=== PATIENT | male | born 1980 | race Caucasian/White ===

== ENCOUNTER 2018-05-14 19:34 | Inpatient (IN) ==
--- NOTE | 2018-05-14 19:38 | Emergency Department Note ---
Disposition Clinical Impression: Suicidal ideation, Intoxication Disposition: Still a Patient Condition: Fair Referrals: NONE,PCP [Primary Care Provider] - Forms: ED Satisfaction Letter General Adult HPI - General Stated complaint: 1A Eval Time Seen by Provider: 05/14/18 19:35 - Related Data Home Medications Medication Instructions Recorded Confirmed RX: No Known Home Drugs 02/22/16 05/14/18 Allergies Allergy/AdvReac Type Severity Reaction Status Date / Time Penicillins [PCN] Allergy Hives Verified 06/21/15 16:24 Past Medical History - Past Medical History Medical history: Reports: hepatitis Surgical history: Reports: no surgical history Psychiatric history: Reports: anxiety, depression - Social History Smoking Status: Current every day smoker Smokeless Tobacco Status: No Alcohol use: Reports: heavy Drug use: Reports: marijuana, methamphetamine, IV Drug Use Course Vital Signs Temperature 98.3 F 05/14/18 19:35 Pulse Rate 89 05/14/18 19:35 Respiratory Rate 17 05/14/18 19:35 Blood Pressure 104/61 05/14/18 19:35 O2 Sat by Pulse Oximetry 99 05/14/18 19:35 Temperature 98.3 F 05/14/18 19:35 Pulse Rate 89 05/14/18 19:35 Respiratory Rate 17 05/14/18 19:35 Blood Pressure 104/61 05/14/18 19:35 O2 Sat by Pulse Oximetry 99 05/14/18 19:35 Oxygen Delivery Oxygen Delivery Room Air Attestation Statement - Attestation Attestation: I examined this patient and my medical decision-making was reviewed with the Resident Physician. I agree with the documented findings, disposition and treatment plan as described except to the extent set forth below. [id number]-[id number] time provided Patient arrives as a transfer from [facility] with alleged suicidality. The patient admits to drinking alcohol today. He was pink slipped by the previous facility. The patient is cooperative. I have reviewed the labs drawn at the sending facility. The patient's blood alcohol level is 203 mg/dL. He will require repeat alcohol level in several hours. Care will be endorsed to Dr. Valdez at 23:00 pending repeat EtOH level and planned mental health consultation
--- NOTE | 2018-05-14 19:39 | Emergency Department Note ---
Disposition Clinical Impression: Suicidal ideation, Intoxication Disposition: Still a Patient Condition: Fair Forms: ED Satisfaction Letter Psych HPI - General Chief Complaint: ED Psychiatric Symptoms Stated Complaint: 1A Eval Time Seen by Provider: 05/14/18 19:35 Source: patient, EMS Mode of arrival: EMS Limitations: no limitations Nursing Notes Reviewed: Yes Vital Signs Reviewed: Yes - History of Present Illness HPI Narrative: 38-year-old male history of bipolar and schizophrenia who presents to the ED from outside facility due to suicidal ideation. Patient is evasive with his answers and does not really answer anything straightforward. As per previous documentation the patient was seen for suicidal ideation stating he was going to overdose. He had labs and urinalysis performed there. Grossly unremarkable the exception of alcohol level of 203. The patient was pink slipped there. He presents alert and answering questions appropriately but is evasive. He denies any complaints this time. Denies any auditory or visual hallucinations. He denies any suicidal or homicidal ideation. No other complaints. Alleged intoxication: Yes Associated Psychiatric Symptoms: none Associated symptoms: Reports: denies other symptoms Treatments prior to arrival: none - Related Data Home Medications Medication Instructions Recorded Confirmed No Known Home Drugs 02/22/16 05/14/18 Allergies Allergy/AdvReac Type Severity Reaction Status Date / Time Penicillins [PCN] Allergy Hives Verified 06/21/15 16:24 All systems ED: reviewed and negative except as stated. Cardiovascular: Denies: chest pain Respiratory: Denies: dyspnea Gastrointestinal: Denies: abdominal pain Neurological: Denies: headache Psychiatric: Denies: anxiety, depression, suicidal thoughts, homicidal thoughts, auditory hallucinations, visual hallucinations Past Medical History - Past Medical History Attestation: Yes The following information was validated with the patient. Source: patient, old records reviewed Medical history: Reports: hepatitis Surgical history: Reports: no surgical history Psychiatric history: Reports: anxiety, depression - Social History Smoking Status: Current every day smoker Smokeless Tobacco Status: No Alcohol use: Reports: heavy Drug use: Reports: marijuana, methamphetamine, IV Drug Use Physical Exam - General Limitations: no limitations General appearance: alert, in no apparent distress - Head Head exam: atraumatic, normocephalic, normal inspection - Eye Eye exam: Present: normal appearance - ENT ENT exam: normal exam - Neck Neck exam: Present: normal inspection - Chest Chest inspection: Present: normal inspection, symmetric chest wall rise - Respiratory Respiratory exam: Present: normal lung sounds bilaterally - Cardiovascular Cardiovascular exam: Present: regular rate, normal rhythm, normal heart sounds - Extremities Exam Extremities exam: Present: normal inspection, full ROM - Expanded Upper Extremity Exam Shoulder exam: Present: normal inspection, full ROM Arm exam: Present: normal inspection, full ROM Elbow exam: Present: normal inspection, full ROM Forearm/Wrist exam: Present: normal inspection, full ROM Hand exam: Present: normal inspection, full ROM - Expanded Lower Extremity Exam Hip/Pelvis exam: Present: normal inspection, full ROM Upper leg exam: Present: normal inspection, full ROM Knee exam: Present: normal inspection, full ROM Lower leg exam: Present: normal inspection, full ROM Ankle exam: Present: normal inspection, full ROM Foot/toe exam: Present: normal inspection, full ROM - Psychiatric Psychiatric exam: Present: depressed, flat affect - Expanded Psychiatric Exam Expanded psych exam: Present: refuses to answer - Skin Skin exam: Present: warm, dry Course Course Narrative: Patient seen and examined. Vital signs reviewed. After reviewing the patient's recent presentation there as well as the fact that he is evasive to answer any questions here the patient is pink slipped here, labs reviewed demonstrating an alcohol level of 203 which will need to be repeated around midnight for medical clearance for psychiatric evaluation. Vital Signs Temperature 98.3 F 05/14/18 19:35 Pulse Rate 89 05/14/18 19:35 Respiratory Rate 17 05/14/18 19:35 Blood Pressure 104/61 05/14/18 19:35 O2 Sat by Pulse Oximetry 99 05/14/18 19:35 Temperature 98.3 F 05/14/18 19:35 Pulse Rate 89 05/14/18 19:35 Respiratory Rate 17 05/14/18 19:35 Blood Pressure 104/61 05/14/18 19:35 O2 Sat by Pulse Oximetry 99 05/14/18 19:35 Oxygen Delivery Oxygen Delivery Room Air Psych - MDM Narrative Medical decision making narrative: 38-year-old male presenting for reportedly suicidal ideation. He is currently awaiting recheck of his alcohol level at this time. The patient will be signed out to the hourly shift manager team pending recheck of his blood alcohol level and discussion with psychiatry for evaluation. - Lab Data Lab results reviewed: Yes I reviewed the patient's lab results. Psychiatric Medical Clearance - Medical Clearance Checklist Medical History: No Social History Section defined Current Vitals: Last Vital Signs Temp 98.3 F 05/14/18 19:35 Pulse 89 05/14/18 19:35 Resp 17 05/14/18 19:35 BP 104/61 05/14/18 19:35 Pulse Ox 99 05/14/18 19:35 Statement of Medical Clearance: I have evaluated the patient, reviewed diagnostic information, and certify that the patient's medical condition is sufficiently stable that transfer to the psychiatric unit does not pose a significant risk of deterioration. S.B.A.R. - S.B.A.R. Situation: Demographics, MOA Background: Presenting Complaint, Relevant PMH, Meds, & Allergies Assessment: Course and respsone to treatment, Exam Concerns, Patient/Family Expectation, Pertinant Lab Results, Outstanding Labs (Repeat EtOH at midnight) Recommendation: Barrier(s) to disposition, Recommendation based on pending studies, treatments, or consults S.B.A.R. Report Given to: Dr. Valdez
[2018-05-14] MEDS ORDERED: Ziprasidone injection 20 MG/ML VIAL IM ONE (20:24)
[2018-05-14] MEDS ORDERED: Water for inj. (sterile) 10 ML IV ONE (20:30)
[2018-05-15] MEDS ORDERED: *HR* LORazepam 2 MG/ML VIAL IM PRN (03:01)
[2018-05-15] MEDS ORDERED: MOM Conc 10 ML UD.LIQ PO PRN (03:01)
[2018-05-15] MEDS ORDERED: Mag Hydrox/Al Hydrox/Simeth 30 ML UDC PO PRN (03:01)
[2018-05-15] MEDS ORDERED: Haloperidol Lactate 5 MG/ML VIAL IM PRN (03:01)
[2018-05-15] MEDS ORDERED: *HR* LORazepam 1 MG TABLET PO PRN (03:01)
[2018-05-15] MEDS ORDERED: Ibuprofen 400 MG TABLET PO PRN (03:01)
[2018-05-15] MEDS: hydrOXYzine pamoate 25 MG CAPSULE PO PRN ×2 (03:47→20:47)
[2018-05-15] MEDS: Nicotine 21 MG PATCH.TD24 TD SCH (10:19)
--- NOTE | 2018-05-15 13:26 | Psychiatry History & Physical ---
Date of Encounter: 05/15/18 Time of Encounter: 08:25 History of Present Illness Patient Stated Chief Complaint: "Paranoia" Medicare Admission Attestation: For traditional Medicare patients the provided hospital inpatient services are reasonable and necessary and in the case of services not specified as inpatient-only under 42 CFR 419.22 (n), that they are appropriately provided as inpatient services in accordance 42 CFR 412.3. For Critical Access Hospital the patient may reasonably be expected to be discharged or transferred to a hospital within 96 hours after admission to the Critical Access Hospital. Admitted From: Emergency Dept Plans for Post Hospital Care: Home History of Present Illness: Mr. Metz is a 38 year old male with a past psychiatric history of Methamphetamine Use, Alcohol Use Disorder, depression, and Substance-Induced Psychotic Disorder as well as self-reported Schizophrenia and bipolar disorder who was admitted for paranoia and SI. Reports state that patient's grandson and told police that he was having SI and wanted to overdose on meth. Reports state that he has been sober from meth for 4-8 days. His family reported that he had poor sleep and appetite. He stated in reports that his mind was racing and had paranoia that people "were out to get him," improving when people were present. Patient reports that he has been paranoid 1 month. He explains that he is then "freaked out for days." He does admit that he gets paranoid on methamphetamine. He explains that since he has been off methamphetamine, his mind has been clear but he continues to have the same level of paranoia. He reports that "I am starting to feel normal again." He explains that his family has been "telling me I am crazy." He states that his paranoia consists of thinking that "everybody is out to get me." She denies that he believes people are trying to harm him but reports that people are "playing games with my head." He gives an example of believing that there were 2 vegetable peelers, stating that he could find neither. He believes that people have taken the peelers out of the kitchen. Patient reports that he is also having suicidal ideations. He reports that his "presentencing officer" told him to go to the ED after the patient called stating that he needed "help." He reports past suicidal thoughts but not to this extent. He denies a plan as to how he would harm himself. He reports overdosing once 4-5 years ago with the intent to self-harm but denies other attempts. He reports that he was on 1A for that attempt. He reports protective factors of his grandchildren (nonbiological) who he sees often. He denies access to firearms. He states that his depression today is "a lot better." He reports depression before today for about a month. He states that the first time he was depressed was in 1995. He admits to having depression even with sobriety, stating, "dictation that is when it is the worst." He admits to decreased sleep (getting a couple hours a night), concentration, and energy as well as feelings of hopelessness and worthlessness. He reports that his mind is racing, stating that he is having thoughts about his and kids. He reports that they are negative in nature, stating that he is constantly worried that he will "lose them." He states, "they tell me I am crazy for thinking that." He denies issues with anhedonia, feelings of unwarranted guilt, and appetite. He denies issues with anxiety today. He denies taking psychiatric medications and does not follow up with anyone anymore for psychiatric issues. He denies SI, HI, AH, and VH. He reports a history of AH when sober and intoxicated, reporting hearing "noises outside" like car doors. He reports that this is happening "a lot" recently. He denies excessive amounts of energy with prolonged decrease in sleep characteristic of bipolar disorder. He denies compulsions consistent with obsessive-compulsive disorder. Past Med Surg Social Fam HX - Past Medical History Source: patient Medical history: hepatitis, other (Dormant and inactive tuberculosis) - Past Psychiatric History Psychiatric history: Reports: bipolar, prior suicide attempt (Substance-induced psychotic disorder, methamphetamine use disorder, alcohol use disorder), schizophrenia, previous psychiatric hospitalization, other Past psychiatric history details: First Contact: 1995 for depression Current Providers: None Past Diagnoses: Schizophrenia, Depression Past Hospitalizations: 4 times, all in 1A Suicide History: Reports SI intermittently in life with 1 attempt 4-5 years ago via overdose. He denies a history of self-injurious non-lethal harm Past Medications: Risperidone Quetiapine Trazodone Others he cannot remember Denies that any medications have helped Family psychiatric history: No Family History of Suicide: None - Past Surgical History Surgical History: no surgical history - Social History Smoking Status: Current every day smoker Packs per day: 1ppd Smokeless Tobacco Status: No Alcohol use: occasionally (Reports seldom use currently; states that he used to drink 30 beers a day, stopping this use 1 year ago) Drug use: marijuana (Reports smoking 2 joints a day), methamphetamine (Reports using methamphetamine on a daily basis, reporting sobriety for 8 days), IV Drug Use (Denies a history of IV drug use with this provider by reported it with other staff) Occupational status: disabled Current living situation: With Family Activity Level: Independent ambulation Recent Out of Country Travel Within the Last 8 Weeks: No Additional social history: Born: [place]. Raised: [facility]. Parents were when he was a child, living with his grandmother. Reports having 1 younger sister who he does not peak much with. Reports that his childhood was great. He reports having a lot of friends and did alright in school, getting average grades. Denies a history of sexual, physical, or emotional abuse. He reports living with his ex- and grandkids. He denies feeling safe in his home. He admits to being x 1, x 1, and reports that his ex- and him are friends currently. He reports having 1 son who he does not speak with. He states that his highest level of education is a GED. He denies a history of experience. He reports being in detention x 2 for theft and is recently in trouble for a car maria fernanda with the police. He denies a orlin or druze he identifies with. Medications & Allergies Azelastine 0.1% Nasal [place] [Astelin] 1 spr NS DAILY 05/15/18 [History] Ergocalciferol (VITAMIN D2) [Vitamin D2] 50,000 unit PO QWEEK 05/15/18 [History] Gabapentin 800 mg PO QID 05/15/18 [History] Meloxicam 15 mg PO QDPC 05/15/18 [History] RX: Acamprosate Calcium 666 mg PO TID 05/15/18 [History] RX: Loratadine [Claritin] 10 mg PO DAILY 05/15/18 [History] RX: Trazodone HCl 200 mg PO HS 05/15/18 [History] risperiDONE [Risperidone] 1 mg PO DAILY 05/15/18 [History] Allergy/AdvReac Type Severity Reaction Status Date / Time Penicillins [PCN] Allergy Hives Verified 06/21/15 16:24 Review of Systems Constitutional: Reports: weakness (subjective, generalized). Denies: fever, chills, weight change, night sweats Eyes: Denies: eye pain, eye discharge, vision change Ears, Nose, Throat: Denies: ear pain, throat pain, dental pain, hearing loss, epistaxis, congestion, dysphagia Cardiovascular: Denies: chest pain, palpitations, dyspnea on exertion, orthopnea, edema, syncope Respiratory: Denies: cough, dyspnea, wheezes, hemoptysis, stridor, sputum production Gastrointestinal: Denies: abdominal pain, nausea, vomiting, diarrhea, constipation, hematemisis, melena, hematochezia Genitourinary male: Denies: urgency, dysuria, frequency, hematuria, discharge, testicular pain, genital lesions Musculoskeletal: Denies: back pain, joint swelling, joint pain, myalgia Integumentary: Denies: rash, lesions, pruritus, breast mass, nipple discharge Neurological: Denies: headache, weakness, numbness, memory loss, abnormal gait, vertigo Psychiatric: Reports: depression, abnormal sleep pattern, difficulty concentrating, hopelessness. Denies: anxiety, suicidal ideation, change in appetite, homicidal ideation, auditory hallucinations, visual hallucinations, anhedonia, confusion Endocrine: Denies: fatigue, heat or cold intolerance, polydipsia, polyuria Hematologic/Lymphatic: Denies: easy bleeding, easy bruising, lymphadenopathy Allergic/Immunologic: Denies: urticaria, itchy eyes Exam - HEENT Head exam IM: Present: atraumatic Eye exam IM: Present: EOMI, normal appearance ENT exam IM: Present: normal exam - Neurological Neurological exam: Present: alert - Respiratory Respiratory exam IM: Present: CTAB (Grossly, respirations rhythmic) - GI/Abdominal GI/Abdominal exam IM: Present: no peritoneal signs - Extremities Extremities exam IM: Present: normal inspection - Skin Skin exam IM: Present: dry - Constitutional Vitals: Temp Pulse Resp BP Pulse Ox 97.8 F 87 18 115/78 97 05/15/18 09:22 05/15/18 09:22 05/15/18 09:22 05/15/18 09:22 05/15/18 09:22 General appearance: age & developmentally appropriate, well-groomed, well- nourished, average Additional observations: Covered up in blanket - Musculoskeletal Gait: normal Station: relaxed Strength & Tone: normal for patient - Psychiatric Patient Orientation: Yes Person, Yes Time, Yes Place Level of alertness: Alert, Follows commands Behavior: calm, cooperative Psychomotor activity: Slowed (Mildly) Eye Contact: Minimal Contact (Due to lying in bed) Mood Description: Depressed Patient description of mood: "All right" Affect description: congruent with mood, constricted Speech Volume: Normal Speech pattern: normal rate, normal tone, fluent, spontaneous, appropriate, clear, coherent, limited (Decreased prosody) Language & Vocabulary: consistent with education Thought Process: Logical, Linear, Goal Oriented Thought Content: No Suicidal ideation, No Homicidal ideation, No Overt delusions Perceptual Disturbances: No Reacting to internal stimuli, No Auditory hallucinations, No Visual hallucinations Attention Span Ability: Capable of Focused Attention Memory Description: Grossly Intact Patient Reliability: Reliable Historian Fund of knowledge: Yes abstraction ability, Yes average, Yes aware of current events Intelligence Estimate: Average Judgment: Fair Insight: Partial Results - Drug Levels and Toxicology Drug Levels and Toxicology: Drug Levels and Toxicity 05/14/18 23:58 Ethyl Alcohol 42 H - Labs Labs: Laboratory Last Values Ethyl Alcohol 42 mg/dL (Less than 10) H 05/14/18 23:58 - Impressions None noted this a.m. Assessment and Plan (1) Drug-induced psychotic disorder with delusions Current visit: Yes Status: Acute Plan: Admit inpatient for safety and stabilization, Close observation, Suicide Precautions per unit protocol, Encourage participation in unit milieu, Group Therapy, Monitor sleep, Monitor appetite Additional Plan: -It is unknown if patient true hallucinations worse this is due to substance use. At this time, due to the recent methamphetamine use and subacute status of withdrawal, we will call his current condition substance-induced psychotic disorder. He likely also has a mood component that is not due to substance use, with him stating that he has depression even with sobriety. However, it is unknown if he has a bipolar or a unipolar illness. He reports a history of bipolar disorder has been at this hospital several times without a bipolar diagnosis in the chart. In addition, he denies a history of prolonged excessive energy with decreased sleep that is characteristic of bipolar disorder. As such, we will call this other specified depressive disorder, substance-induced depressive disorder versus major depressive disorder. -Due to increased paranoia, depression, and possible auditory hallucinations, we will start aripiprazole 5 mg by mouth daily at bedtime for mood and psychosis. Risks, benefits, side effects, and alternatives were discussed with the patient -Continue hydroxyzine 25 mg by mouth 3 times a day when necessary for anxiety -Continue trazodone 50 mg by mouth daily at bedtime when necessary for sleep -Continue when necessary medication as needed for agitation and aggression -Encourage group this patient -Patient reports stable housing -Will work to refer patient for psychiatric and counseling services, which he agrees with -Anticipated discharge once more psychiatrically stable Risks, benefits, side effects, alternatives discussed w/pt: Yes Patient agreeable to treatment: Yes Plans for Post Hospital Care: Home Estimated Length of Stay (Days): 3 (2) Other specified depressive episodes Current visit: Yes Status: Acute Plan: Admit inpatient for safety and stabilization, Close observation, Suicide Precautions per unit protocol, Encourage participation in unit milieu, Group Therapy, Monitor sleep, Monitor appetite Risks, benefits, side effects, alt ernatives discussed w/pt: Yes Patient agreeable to treatment: Yes Plans for Post Hospital Care: Home Estimated Length of Stay (Days): 3 - Attending Attestation I examined this patient and my medical decision-making was reviewed with the Resident Physician. I agree with the documented findings, disposition and treatment plan as described except to the extent set forth below.
[2018-05-15] MEDS: traZODone 50 MG TABLET PO PRN (20:47)
[2018-05-15] MEDS: ARIPiprazole 5 MG TABLET PO SCH (20:48)
--- NOTE | 2018-05-16 09:14 | Psychiatry Progress Note ---
Date of Encounter: 05/16/18 Time of Encounter: 09:12 Subjective Interval history: She reports she is tolerating medications well. He said that his mood is good. He had some paranoia yesterday but has not been expressing tingling at this morning. He denies suicidal thoughts ideations or plans. He is future oriented. Review of Systems Psychiatric: Reports: depression. Denies: anxiety, suicidal ideation, change in appetite, homicidal ideation, auditory hallucinations, visual hallucinations, anhedonia, confusion Results - Vital Signs Vital Signs: Temp Pulse Resp BP Pulse Ox 98.4 F 76 18 109/77 97 05/16/18 09:00 05/16/18 09:00 05/16/18 09:00 05/16/18 09:00 05/16/18 09:00 Assessment and Plan (1) Drug-induced psychotic disorder with delusions Current visit: Yes Status: Acute Plan: Continue hospitalization, Close observation, Suicide Precautions per unit protocol, Encourage participation in unit milieu, Group Therapy, Monitor sleep, Monitor appetite Additional Plan: Continue current medication, therapist working on discharge planning, encourage group attendance. No signs of withdrawal. We will discontinue every 4 hours vitals. Risks, benefits, side effects, alternatives discussed w/pt: Yes Patient agreeable to treatment: Yes (2) Other specified depressive episodes Current visit: Yes Status: Acute Risks, benefits, side effects, alternatives discussed w/pt: Yes Patient agreeable to treatment: Yes Consult Discharge Plan - Plan Referrals: NONE,PCP [Primary Care Provider] - Psychiatry Exam - Constitutional Vitals: Temp Pulse Resp BP Pulse Ox 98.4 F 76 18 109/77 97 05/16/18 09:00 05/16/18 09:00 05/16/18 09:00 05/16/18 09:00 05/16/18 09:00 General appearance: age & developmentally appropriate, well-groomed, well- nourished - Musculoskeletal Gait: normal Station: relaxed Strength & Tone: normal for patient - Psychiatric Patient Orientation: Yes Person, Yes Time, Yes Place Level of alertness: Alert Behavior: calm, cooperative Psychomotor activity: Normal Eye Contact: Maintains Eye Contact Mood Description: Euthymic/stable Patient description of mood: "better" Affect description: congruent with mood, full range Speech Volume: Normal Speech pattern: normal rate, normal rhythm, normal tone, fluent, spontaneous Language & Vocabulary: consistent with education Thought Process: Linear, Goal Oriented Thought Content: No Suicidal ideation, No Homicidal ideation, No Overt delusions Perceptual Disturbances: No Auditory hallucinations, No Visual hallucinations Attention Span Ability: Capable of Focused Attention Memory Description: Grossly Intact Patient Reliability: Reliable Historian Fund of knowledge: Yes abstraction ability, Yes aware of current events Intelligence Estimate: Average Judgment: Fair Insight: Partial
[2018-05-16] MEDS: Nicotine 21 MG PATCH.TD24 TD SCH (12:12)
[2018-05-16] MEDS: hydrOXYzine pamoate 25 MG CAPSULE PO PRN (21:04)
[2018-05-16] MEDS: traZODone 50 MG TABLET PO PRN (21:05)
[2018-05-16] MEDS: ARIPiprazole 5 MG TABLET PO SCH (21:05)
[2018-05-17] MEDS: Nicotine 21 MG PATCH.TD24 TD SCH (08:41)
[2018-05-17 09:23] VITALS: BP 117/81
--- NOTE | 2018-05-17 11:01 | Discharge Summary ---
Date of Encounter: 05/17/18 Time of Encounter: 09:30 Diagnosis - Discharge Diagnosis (1) Drug-induced psychotic disorder with delusions Status: Resolved Comments: Patient has responded to Abilify and agrees to continue this medication. Patient endorses some symptoms consistent with Bipolar Disorder and further evaluation and adjustment of his meds would be appropriate in an OP setting. Medications - Discharge Medications Prescriptions: ARIPiprazole [Abilify] 5 mg PO HS 30 Days #30 tablet Acamprosate Calcium 666 mg PO TID 05/15/18 [History] Azelastine 0.1% Nasal [place] [Astelin] 1 spr NS DAILY 05/15/18 [History] Ergocalciferol (VITAMIN D2) [Vitamin D2] 50,000 unit PO QWEEK 05/15/18 [History] Gabapentin 800 mg PO QID 05/15/18 [History] Loratadine [Claritin] 10 mg PO DAILY 05/15/18 [History] Meloxicam 15 mg PO QDPC 05/15/18 [History] Trazodone HCl 200 mg PO HS 05/15/18 [History] ARIPiprazole [Abilify] 5 mg PO HS 30 Days #30 tablet 05/17/18 [Rx] Allergy/AdvReac Type Severity Reaction Status Date / Time Penicillins [PCN] Allergy Hives Verified 06/21/15 16:24 Results Procedures and tests throughout hospitalization: Completed Lab Orders Category Date Time Status Ethanol Routine Lab 05/15/18 00:01 Completed Ethanol 42 on admit Provider Date of admission: 05/15/18 03:15 Primary care physician: PCP NONE Discharging clinician: Elizabeth Lam Psychiatry Exam - Constitutional Vitals: Temp Pulse Resp BP Pulse Ox 98.3 F 81 18 117/81 98 05/17/18 09:00 05/17/18 09:00 05/17/18 09:00 05/17/18 09:00 05/17/18 09:00 General appearance: age & developmentally appropriate - Musculoskeletal Gait: normal Station: relaxed Strength & Tone: normal for patient - Psychiatric Patient Orientation: Yes Person, Yes Time, Yes Place Level of alertness: Alert Behavior: nervous, guarded Psychomotor activity: Normal Eye Contact: Maintains Eye Contact Mood Description: Anxious Affect description: congruent with mood, full range Speech Volume: Normal Speech pattern: normal rate, normal rhythm, normal tone, fluent, spontaneous Language & Vocabulary: consistent with education Thought Process: Linear, Goal Oriented Thought Content: No Suicidal ideation, No Homicidal ideation, No Overt delusions Perceptual Disturbances: No Auditory hallucinations, No Visual hallucinations Attention Span Ability: Capable of Focused Attention Memory Description: Grossly Intact Patient Reliability: Reliable Historian Fund of knowledge: Yes abstraction ability, Yes aware of current events Intelligence Estimate: Average Judgment: Fair Insight: Partial Hospital Course Hospital course: Mr. 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 Patient has long history of drug use and rehab treatments. Patient today denies A/V hallucinations, denies SI/HI. Patient rates his mood as a 1 on scale of 1-10, 10 is worst and his anxiety as a 1. Patient denies paranoia. Patient states that the Abilify has slowed his thoughts down to a normal rate and he likes this. Patient also feels calmer. Patient in the past has gotten off of his meds due to noncompliance or loss of a provider. Patient has some legal issues going on now and expects them to resolve soon. Patient is agreeable to trying rehab again. Time spent discussing smoking cessation with patient: 3 to 10 minutes Does patient wish to continue nicotine replacement upon disc: No - Time Spent with Patient Total time spent providing and/or coordinating discharge services: Less than 30 minutes Assessment and Plan - Patient/Caregiver Discharge Instructions Activity: resume usual activities as tolerated Diet: regular diet - Follow up Plan Follow up with: [facility] [Other] (You have indicated that you wish to do inpatient substance abuse treatment. A referral has been made on your behalf to [facility]. Please call them on Sunday to check the status of your referral. Otherwise, please follow-up with [place], [place] for treatment. [facility] [address] [place], [place] [address] ) [facility] (Should you choose to follow-up with an outpatient treatment provider instead of residential treatment, please contact [facility] at that number above to be scheduled for an intake appointment.) [facility] [Outside] (You have indicated that you wish to follow up and seek treatment at a residential substance abuse treatment facility. You have completed the prescreening with the admission worker and are being considered for acceptance depending on when they have the next available bed. Please call the [facility] admissions office at each day between 8:00 to 10:00 AM to check the status of your referral. ) Overall status at discharge: Stable Disposition: Home, Self-Care Quality - Multiple Antipsychotics Patient discharged on 2 or more antipsychotic medications: No Procedures - Procedures Procedures: Medication Management (Patient stable, non psychotic at discharge.), Crisis Stabilization, Supportive Therapy, Group Therapy, Psychoeducational Therapy
== END 2018-05-17 11:45 | disposition home or self-care (01) | DRG 775 ==
LOC: EMEROOARM 19:34 → 1ANU 19:34
PROVIDERS: ADMIT Psychiatry & Neurology Psychiatry; ATTEND Psychiatry & Neurology Psychiatry

== ENCOUNTER 2018-08-31 10:39 | Inpatient (IN) ==
[2018-08-31] MEDS ORDERED: VITAMIN K IVC ONE (12:13)
[2018-08-31] MEDS ORDERED: MVI IVC ONE (12:13)
[2018-08-31] MEDS ORDERED: SODIUM CHLORIDE 0.9% IVC ONE (12:13)
[2018-08-31] MEDS ORDERED: *HR* LORazepam 2 MG/ML VIAL IVP PRN ×2 (12:16→14:01)
[2018-08-31] MEDS ORDERED: Ringers Solution, Lactated 1,000 ML IVC SCH (15:30)
[2018-08-31 15:43] VITALS: BP 94/67
[2018-08-31] MEDS ORDERED: *HR* Heparin 5,000 UNIT/ML VIAL SQ SCH ×2 (18:00)
== END 2018-08-31 16:20 | disposition left against medical advice (07) | DRG 52 ==
LOC: EDBD → ICNU 12:01 → INTOOBSV 12:01 → MERGE 12:01 → OBSVTOIN 12:01
PROVIDERS: ADMIT Internal Medicine Hospice and Palliative Medicine; ATTEND Internal Medicine Hospice and Palliative Medicine

== ENCOUNTER 2021-05-27 12:11 | Observation (INO) ==
[2021-05-27] MEDS ORDERED: Ondansetron 4 MG/2 ML VIAL IVP PRN ×4 (14:31→20:26)
[2021-05-27] MEDS ORDERED: Acetaminophen 325 MG TABLET PO PRN ×2 (14:31→20:26)
[2021-05-27] MEDS ORDERED: Naloxone 0.4 MG/ML INJ IVP PRN ×2 (14:31→20:26)
[2021-05-27] MEDS ORDERED: Ringers Solution, Lactated 1,000 ML IVC SCH ×2 (14:45→20:26)
[2021-05-27] MEDS ORDERED: *HR* HYDROmorphone (PF) 1 MG/ML SYRINGE IVP PRN ×2 (15:11→20:26)
[2021-05-27] MEDS ORDERED: *HR* LORazepam 2 MG/ML VIAL IVP PRN ×6 (15:19→20:26)
[2021-05-27] MEDS ORDERED: Nicotine 14 MG PATCH.TD24 TD SCH (15:30)
[2021-05-27 15:46] LABS: Amphetamine Screen,Urine Positive ng/mL (Cutoff=1000); Barbiturate Screen,Urine Negative ng/mL (Cutoff=200); Benzodiazepines Screen,Urine Negative ng/mL (Cutoff=200); Cannabinoid Screen,Urine Positive ng/mL (Cutoff = 50); Cocaine Screen,Urine Negative ng/mL (Cutoff= 300); Opiate Screen,Urine Positive ng/mL (Cutoff=300); Phencyclidine Screen,Urine Negative ng/mL (Cutoff=25)
[2021-05-27] MEDS ORDERED: Thiamine (B-1) 200 MG in 0.9 % Sodium Chloride 50 ML IVPB SCH (16:00)
[2021-05-27] MEDS ORDERED: MetroNIDAZOLE 500 MG/100 ML 500 MG/100 ML BAG IVPB SCH (16:00)
[2021-05-27] MEDS ORDERED: Folic Acid 1 MG in 0.9 % Sodium Chloride 50 ML IVPB SCH (16:00)
[2021-05-27] MEDS ORDERED: *HR* Midazolam HCl 2 MG/2 ML VIAL ONE (16:44)
[2021-05-27] MEDS ORDERED: *HR* FentaNYL (PF) 100 MCG/2 ML VIAL ONE (16:44)
[2021-05-27] MEDS ORDERED: *HR* Propofol 200 MG/20 ML VIAL IVP ONE (16:44)
[2021-05-27] MEDS ORDERED: Lidocaine -MPF 2% 5 ML VIAL ONE (16:45)
[2021-05-27] MEDS ORDERED: Lidocaine HCL 4 ML Topical Solution (Laryng-O-Jet Kit Sterile Pak) TP ONE (16:45)
[2021-05-27] MEDS ORDERED: *HR* Rocuronium Bromide 50 MG/5 ML VIAL ONE ×2 (16:45→18:29)
[2021-05-27] MEDS ORDERED: Ondansetron 4 MG/2 ML VIAL ONE (16:45)
[2021-05-27] MEDS ORDERED: Ketamine HCL *QUVA* 50mg (1mL) SYRINGE ONE (17:10)
[2021-05-27] MEDS ORDERED: Promethazine 6.25 MG in Water for inj. (sterile) 20 ML IVPB PRN ×2 (17:14→20:26)
[2021-05-27] MEDS ORDERED: *HR* OxyCODONE Immed Rel 5 MG TABLET PO PRN ×2 (17:14→20:26)
[2021-05-27] MEDS ORDERED: *HR* HYDROmorphone PF 0.5 MG/0.5 ML SYRINGE IVP PRN ×2 (17:14→20:26)
[2021-05-27] MEDS ORDERED: MetroNIDAZOLE 500 MG/100 ML 500 MG/100 ML BAG IVPB ONE (17:39)
[2021-05-27] MEDS ORDERED: Lidocaine/EPI 1:100k 1% 30 ML VIAL ONE (17:39)
[2021-05-27] MEDS ORDERED: Sugammadex Sodium 200 MG/2 ML VIAL IV ONE (17:58)
[2021-05-27] MEDS ORDERED: cefTRIAXone 2,000 MG in 0.9 % Sodium Chloride 20 ML IVP ONE (18:00)
[2021-05-27] MEDS ORDERED: *HR* HYDROMORPHONE 2 MG/ML VIAL ONE (18:13)
[2021-05-28] MEDS ORDERED: *HR* Enoxaparin 40 MG/0.4 ML SYRINGE SQ SCH ×2 (06:00)
[2021-05-28 06:31] LABS: Basophils % 0.1 %; Hematocrit 38.2 % (37.5-50.1); Hemoglobin 13.2 g/dL (12.9-16.9); Immature Granulocytes % 0.4 % (0-4); Lymphocytes # 1.6 K/mcL (0.6-4.6); Lymphocytes % 10.5 %; Mean Corpuscular HGB Conc 34.6 g/dL (31.6-35.5); Mean Corpuscular Hemoglobin 31.4 pg (28.0-33.3); Mean Platelet Volume 10.3 fL (9.4-12.4); Monocytes % 6.3 %; Neutrophils # 12.9 K/mcL (1.6-8.9); Platelet Count 198 K/mcL (140-400); Red Cell Distribution Width 12.9 % (11.5-14.5); Segmented Neutrophils % 82.7 %; White Blood Count 15.6 K/mcL (4.3-11.1)
[2021-05-28 06:43] LABS: BUN/Creatinine Ratio 18 (6-26); Blood Urea Nitrogen 12 mg/dL (6-20); Calcium 8.8 mg/dL (8.6-10.3); Carbon Dioxide 25 mEq/L (23-29); Chloride 103 mEq/L (98-107); Glucose 125 mg/dL (70-105); Magnesium 1.9 mg/dL (1.6-2.6); Osmolality,Calculated 281 (280-300); Potassium 4.2 mEq/L (3.5-5.1); Sodium 135 mEq/L (136-145); eGFR For African Americans > 60 (> 60); eGFR For Non-African Americans > 60 (> 60)
[2021-05-28] MEDS ORDERED: Folic Acid 1 MG in 0.9 % Sodium Chloride 50 ML IVPB SCH (09:00)
[2021-05-28] MEDS ORDERED: Thiamine (B-1) 200 MG in 0.9 % Sodium Chloride 50 ML IVPB SCH (09:00)
[2021-05-28] MEDS ORDERED: Nicotine 14 MG PATCH.TD24 TD SCH (09:00)
[2021-05-28 10:47] VITALS: BP 126/71; PULSE 84; TEMP 97.6; O2SAT 97
== END 2021-05-28 11:54 | disposition home or self-care (01) ==
LOC: 3ANU
PROVIDERS: ADMIT Internal Medicine; ATTEND Internal Medicine